=== PATIENT | male | born 1995 | race Asian ===

== ENCOUNTER 2024-03-26 18:02 | Emergency (ER) | payer BC ==
[2024-03-26] MEDS ORDERED: Boostrix 0.5 ML (Tdap) VIAL (>/=7 yrs of age) ONE (20:22)
[2024-03-26] MEDS ORDERED: Bacitracin 1 PK ONE (20:22)
== END 2024-03-26 20:37 | disposition home or self-care (01) ==
LOC: ERS 18:02
DX: S61.211A Laceration without foreign body of left index finger without damage to nail, initial encounter (principal); Z23 Encounter for immunization; W26.0XXA Contact with knife, initial encounter; Y93.89 Activity, other specified
CPT/HCPCS: 90471; 90715